=== PATIENT | female | born 1995 | race Hispanic/Latino ===

== ENCOUNTER 2017-06-10 22:21 | Emergency (ER) | payer OTHER ==
[2017-06-10 22:21] VITALS: BMI 31.2
[2017-06-10 22:33] VITALS: RESP 16; TEMP 98.2
--- NOTE | 2017-06-10 23:16 | ED PDOC ---
HPI: Psych/Substance Abuse Time Seen by Provider: 06/10/17 22:35 Chief Complaint (Nursing): Psychiatric Evaluation Chief Complaint (Provider): crisis eval History Per: Patient, Family History/Exam Limitations: no limitations Onset/Duration Of Symptoms: Days Current Symptoms Are (Timing): Still Present Additional History Per: Patient, Family Additional Complaint(s): 21 y/o female history of bipolar, depression, anxiety presents with mother for crisis eval. Patient states ever since stopping her Latuda medication in September (due to sidee effects) she has been depressed and her anxiety has gotten worse. Patient notes trying multiple other psych medications without improvement of symptoms. Patient taking Klonopin without relief. Denies suicidal/homicidal ideations, hallucinations, drug/alcohol use, acute medical complaints. Past Medical History Reviewed: Historical Data, Nursing Documentation, Vital Signs Vital Signs: Last Vital Signs Temp 98.2 F 06/10/17 22:29 Pulse 112 H 06/10/17 22:29 Resp 16 06/10/17 22:29 BP 158/93 H 06/10/17 22:29 Pulse Ox 100 06/10/17 22:29 - Medical History PMH: Anxiety, Bipolar Disorder, Depression Denies: Diabetes, Hepatitis, HIV, HTN, Seizures, Sexually Transmitted Disease - Family History Family History: States: No Known Family Hx - Home Medications Home Medications: Ambulatory Orders Medication Instructions Recorded Lurasidone HCl [Latuda] 80 mg PO DAILY 08/18/15 - Allergies Allergies/Adverse Reactions: Allergies Allergy/AdvReac Type Severity Reaction Status Date / Time bacitracin Allergy RASH Verified 06/10/17 22:28 [From Neosporin ([id number])] bacitracin zinc Allergy RASH Verified 06/10/17 22:28 [From Neosporin ([id number])] neomycin sulfate Allergy RASH Verified 06/10/17 22:28 [From Neosporin ([id number])] polymyxin B Allergy RASH Verified 06/10/17 22:28 [From Neosporin ([id number])] Review of Systems ROS Statement: Except As Marked, All Systems Reviewed And Found Negative Psych: Positive for: Anxiety, Depression Physical Exam - Reviewed Nursing Documentation Reviewed: Yes Vital Signs Reviewed: Yes - Physical Exam Appears: Positive for: Well, Non-toxic, No Acute Distress Head Exam: Positive for: ATRAUMATIC, NORMAL INSPECTION, NORMOCEPHALIC Skin: Positive for: Normal Color Eye Exam: Positive for: Normal appearance ENT: Positive for: Normal ENT Inspection Cardiovascular/Chest: Positive for: Regular Rate, Rhythm Respiratory: Positive for: Normal Breath Sounds Gastrointestinal/Abdominal: Positive for: Normal Exam Back: Positive for: Normal Inspection Extremity: Positive for: Normal ROM Neurologic/Psych: Positive for: Alert, Oriented - ECG O2 Sat by Pulse Oximetry: 100 - Progress ED Course And Treament: Patient evaluated by glass worker; does not meet criteria for admission at this time as per Dr. Cobb. Outpatient appointment given. Return to ED for worsening/concerning symptoms. Disposition - Clinical Impression Clinical Impression: Anxiety - Patient ED Disposition Is Patient to be Admitted: No Counseled Patient/Family Regarding: Diagnosis, Need For Followup - Disposition Disposition: Routine/Home Disposition Time: 01:14 Condition: STABLE Instructions: Anxiety (ED)
[2017-06-11 01:29] VITALS: BP 143/56; PULSE 86; O2SAT 99
== END 2017-06-11 01:53 | disposition home or self-care (01) ==
LOC: H.ER 22:21
DX: F41.9 Anxiety disorder, unspecified (principal); F31.9 Bipolar disorder, unspecified